=== PATIENT | female | born 1985 | race Asian ===

== ENCOUNTER 2018-05-22 13:00 | Inpatient (IN) | payer OTHER ==
[~2018-05-22] VITALS: Ht 154.9 cm; Wt 84.8 kg
[2018-05-22 14:40] LABS: BASOPHILS # (AUTO) 0.2 K/uL (0.0-0.2); BASOPHILS % (AUTO) 1.9 % (0.0-2.0); EOSINOPHILS % (AUTO) 0.2 % (0.0-4.0); HEMATOCRIT 38.8 % (36-48); HEMOGLOBIN 12.3 g/dL (12.0-16.0); LYMPHOCYTES # (AUTO) 1.9 K/uL (1.0-5.5); LYMPHOCYTES % (AUTO) 17.1 % (20.5-51.5); MEAN CORPUSCULAR HEMOGLOBIN 26 pg (27-31); MEAN CORPUSCULAR HGB CONC 32 % (32-36); MEAN CORPUSCULAR VOLUME 82 fL (79.0-98.0); MONOCYTES # (AUTO) 0.3 K/uL (0.0-1.0); MONOCYTES % (AUTO) 2.6 % (1.7-9.3); NEUTROPHILS # (AUTO) 8.6 K/uL (1.8-7.7); NEUTROPHILS % (AUTO) 78.2 % (40.0-70.0); PLATELET COUNT (AUTO) 271 K/uL (130-430); RED BLOOD CELL COUNT(AUTO) 4.76 MIL/uL (4.2-6.2); RED CELL DISTRIBUTION WIDTH 14.2 % (9.0-15.0)
[2018-05-22 14:58] LABS: CALCIUM 9.5 mg/dL (8.4-11.0); CREATININE 0.48 mg/dL (0.55-1.30); POTASSIUM 4.1 mmol/L (3.5-5.1)
[2018-05-22] MEDS ORDERED: CEFAZOLIN 2 GM IVPB PREMIX 50 ML IV ONE (15:00)
[2018-05-22] MEDS ORDERED: DIPH-TET-PERTUS Vaccine 0.5 ML VIAL (ADACEL) I.M. ONE (15:00)
[2018-05-22 15:02] LABS: ALBUMIN 2.6 g/dL (3.4-4.8); TOTAL BILIRUBIN 0.3 mg/dL (0.0-1.0)
[2018-05-22 15:03] LABS: INR 0.9 (0.8-1.2); PROTHROMBIN TIME 8.8 SECS (9.5-12.5)
[2018-05-22 15:27] LABS: BILIRUBIN,URINE NEGATIVE (NEGATIVE); BLOOD, URINE NEGATIVE (NEGATIVE); CLARITY/URINE HAZY (CLEAR); COLOR,URINE YELLOW (YELLOW); GLUCOSE,URINE NEGATIVE (NEGATIVE); KETONES,URINE 2+ (NEGATIVE); LEUKOCYTE ESTERASE ,URINE TRACE (NEGATIVE); NITRITE, URINE NEGATIVE (NEGATIVE); PH,URINE 6.5 (5.0-8.0); PROTEIN URINE NEGATIVE (NEGATIVE)
[2018-05-22 16:24] LABS: BACTERIA,URINE MODERATE /HPF (None Seen); RBC,URINE 0-3 /HPF (0-3)
[2018-05-22 16:28] LABS: MUCUS,URINE 3+ /LPF (None Seen)
[2018-05-22] MEDS ORDERED: LR 1,000 ML IV SCH ×2 (17:42→17:56)
[2018-05-22] MEDS ORDERED: METOCLOPRAMIDE HCL 10 MG/2 ML VIAL IVP PRN (17:45)
[2018-05-22] MEDS ORDERED: MEPERIDINE HCL/PF 50 MG/ML AMP IVP PRN ×2 (17:45)
[2018-05-22] MEDS ORDERED: KETOROLAC TROMETHAMINE 60 MG/2 ML VIAL IM PRN (17:45)
[2018-05-22] MEDS ORDERED: ONDANSETRON HCL 4 MG/2 ML VIAL IVP PRN (17:45)
[2018-05-22] MEDS ORDERED: MORPHINE SULFATE 10MG/10ML PF AMP SP SCH (17:45)
[2018-05-22] MEDS ORDERED: NALOXONE HCL 0.4 MG/ML AMP (NARCAN) IVP PRN (17:45)
[2018-05-22] MEDS ORDERED: OXYTOCIN/0.9 % SODIUM CHLORIDE 1,000 ML IV ONE (17:56)
[2018-05-22] MEDS ORDERED: HYDROcodone/ACETAMIN 5-325 MG TAB (NORCO/ VICODIN) PO PRN (18:00)
[2018-05-22] MEDS ORDERED: RHO(D) IMMUNE GLOBULIN/MALTOSE 1500 UNITS/1.3 ML (WINHRO) IM PRN (18:00)
[2018-05-22] MEDS ORDERED: DIPH-TET-PERTUS Vaccine 0.5 ML VIAL (ADACEL) I.M. PRN (18:00)
[2018-05-22] MEDS ORDERED: LANOLIN 7 GM OINT. TP PRN (18:00)
[2018-05-22] MEDS ORDERED: IBUPROFEN 600 MG TABLET PO SCH (18:00)
[2018-05-22] MEDS ORDERED: SENNOSIDES/DOCUSATE SODIUM 1 TAB TABLET(SENOKOT-S) PO PRN (18:00)
[2018-05-22] MEDS ORDERED: BISACODYL 10 MG/SUPPOSITORY RC PRN (18:00)
[2018-05-22] MEDS ORDERED: MEASLES,MUMPS&RUBELLA VACC/PF 12500 UNIT/0.5 ML VIAL SUBQ PRN (18:00)
[2018-05-22 18:09] VITALS: BP_SYST 100
[2018-05-22] MEDS ORDERED: D5LR 1,000 ML IV ONE (18:15)
[2018-05-22] MEDS ORDERED: OXYTOCIN 10 UNIT/ML VIAL ONE (18:27)
[2018-05-22] MEDS ORDERED: OXYTOCIN 10 UNIT/ML VIAL IV ONE (18:30)
[2018-05-22] MEDS: DIPHENHYDRAMINE INJ 50 MG/ML VIAL IM PRN (18:35)
[2018-05-22] MEDS ORDERED: DIPHENHYDRAMINE INJ 50 MG/ML VIAL ONE (18:37)
[2018-05-22] MEDS ORDERED: CEFAZOLIN 1 GM IVPB PREMIX 50 ML IV SCH (21:00)
[2018-05-22] MEDS ORDERED: TEMAZEPAM 15 MG CAPSULE PO PRN (21:00)
[2018-05-23] MEDS: DOCUSATE SODIUM 100 MG CAPSULE PO PRN ×2 (04:50→15:50)
[2018-05-23] MEDS: SIMETHICONE 80 MG TAB.CHEW PO PRN ×2 (04:51→15:50)
[2018-05-23] MEDS: DIPHENHYDRAMINE INJ 50 MG/ML VIAL IM PRN ×2 (04:52)
[2018-05-23] MEDS: CEFAZOLIN 1 GM IVPB PREMIX 50 ML IV SCH ×2 (06:00)
[2018-05-23] MEDS ORDERED: KETOROLAC TROMETHAMINE 30 MG VIAL IVP SCH (06:00)
[2018-05-23 06:51] LABS: BASOPHILS # (AUTO) 0.1 K/uL (0.0-0.2); BASOPHILS % (AUTO) 1.4 % (0.0-2.0); EOSINOPHILS # (AUTO) 0.1 K/uL (0.0-0.4); HEMATOCRIT 32.8 % (36-48); HEMOGLOBIN 10.5 g/dL (12.0-16.0); LYMPHOCYTES # (AUTO) 1.9 K/uL (1.0-5.5); LYMPHOCYTES % (AUTO) 18.7 % (20.5-51.5); MEAN CORPUSCULAR HEMOGLOBIN 26 pg (27-31); MEAN CORPUSCULAR HGB CONC 32 % (32-36); MEAN CORPUSCULAR VOLUME 82 fL (79.0-98.0); MONOCYTES # (AUTO) 0.5 K/uL (0.0-1.0); NEUTROPHILS # (AUTO) 7.5 K/uL (1.8-7.7); NEUTROPHILS % (AUTO) 73.9 % (40.0-70.0); PLATELET COUNT (AUTO) 203 K/uL (130-430); RED CELL DISTRIBUTION WIDTH 14.1 % (9.0-15.0); WHITE BLOOD COUNT (AUTO) 10.1 K/uL (4.8-10.8)
[2018-05-23] MEDS: KETOROLAC TROMETHAMINE 30 MG VIAL IVP SCH ×3 (11:32→17:11)
[2018-05-24] MEDS: IBUPROFEN 600 MG TABLET PO SCH ×5 (00:06→23:00)
[2018-05-24] MEDS: OXYCODONE/ACETAMINOPHEN 5-325 TABLET PO PRN ×3 (00:22→21:47)
[2018-05-24] MEDS: SIMETHICONE 80 MG TAB.CHEW PO PRN ×2 (11:25→21:46)
--- NOTE | 2018-05-24 16:38 | NUR ---
Dietitian Recommendations * Recommend continuing regular diet per MD FAUSTIN, RD Please refer to Nutrition Assessment for details. Addendum: 05/25/18 at [address] CORRECTION: Dietitian Recommendations * Recommend regular, lactoovo-vegetarian diet LP, RD Please refer to Nutrition Assessment for details.
[2018-05-24] MEDS ORDERED: MIDAZOLAM HCL 5 MG/5 ML VIAL IVP ONE (16:55)
[2018-05-24] MEDS ORDERED: LR 1,000 ML IV.SOLN IV ONE (16:55)
[2018-05-24] MEDS ORDERED: MORPHINE SULFATE 10MG/10ML PF AMP EP ONE (16:55)
[2018-05-24] MEDS ORDERED: CEFAZOLIN 2 GM IVPB PREMIX 50 ML IV ONE (16:55)
[2018-05-24] MEDS ORDERED: OXYTOCIN/0.9 % SODIUM CHLORIDE 20 UNITS/1,000 ML BAG IV ONE (16:55)
[2018-05-24] MEDS ORDERED: ONDANSETRON HCL 4 MG/2 ML VIAL IVP ONE (16:55)
[2018-05-24] MEDS ORDERED: WATER FOR IRRIGATION,STERILE 1,000 ML IRRIG.SOLN IR ONE (16:55)
[2018-05-24] MEDS: DOCUSATE SODIUM 100 MG CAPSULE PO PRN (21:46)
[2018-05-25] MEDS: IBUPROFEN 600 MG TABLET PO SCH ×4 (05:37→23:48)
[2018-05-25] MEDS: FIORCET PO PRN ×3 (14:03→22:13)
[2018-05-25] MEDS ORDERED: BACITRACIN 1 GM OINT TP ONE ×2 (17:12→20:45)
[2018-05-25] MEDS: OXYCODONE/ACETAMINOPHEN 5-325 TABLET PO PRN (20:30)
[2018-05-26] MEDS: OXYCODONE/ACETAMINOPHEN 5-325 TABLET PO PRN (02:31)
[2018-05-26] MEDS: IBUPROFEN 600 MG TABLET PO SCH (07:01)
[2018-05-26] MEDS ORDERED: BACITRACIN 1 GM OINT TP ONE (10:47)
[2018-05-26] MEDS: DOCUSATE SODIUM 100 MG CAPSULE PO PRN (10:47)
== END 2018-05-26 17:13 | disposition home or self-care (01) | DRG 787 ==
LOC: SPU 13:00
PROVIDERS: ADMIT Specialist; ATTEND Specialist
PROC: 10D00Z1 Extraction of Products of Conception, Low, Open Approach (ICD-10-PCS; principal; 2018-05-23)
DX: O24.424 Gestational diabetes mellitus in childbirth, insulin controlled (principal); O41.03X0 Oligohydramnios, third trimester, not applicable or unspecified; Z37.0 Single live birth; Z3A.38 38 weeks gestation of pregnancy; O89.4 Spinal and epidural anesthesia-induced headache during the puerperium; O13.4 Gestational [pregnancy-induced] hypertension without significant proteinuria, complicating childbirth; O99.284 Endocrine, nutritional and metabolic diseases complicating childbirth; E03.9 Hypothyroidism, unspecified
CPT/HCPCS: 36415; 80053; 81000-TC; 81002-TC; 82948; 82962; 85025; 85610-TC; 85730-TC; 86592; 86886; 86900; 86901; 90656; 90715; 94760; J0690; J1200; J1885; J2250; J2274; J2405; J2590; J7120